=== PATIENT | male | born 1960 | race Caucasian/White ===

== ENCOUNTER → 2016-04-03 | Outpatient (CLI) | payer BC ==
[2016-04-03 08:10] LABS: Basophils % (A) 1 %; CH 31.4; CHCM 36.4; Eosinophils # (A) 0.3 k/uL (0-0.7); Eosinophils % (A) 4 %; HCT 44.4 % (39.0-53.0); HDW 2.93; HGB 15.4 gm/dL (13.0-17.5); Luc # (Auto) 0.12; Luc % (Auto) 2; Lymphocytes # (A) 1.3 k/uL (1.0-4.8); Lymphocytes % (A) 19 %; MCHC 34.7 g/dL (31.0-37.0); MCV 86.4 fL (80.0-100.0); Mean Platelet Volume 6.4; Monocytes # (A) 0.4 k/uL (0-1.0); Monocytes % (A) 6 %; Neutrophils # (A) 4.7 k/uL (1.3-7.7); Neutrophils % (A) 69 %; RBC 5.14 m/uL (4.30-5.90); WBC 6.7 k/uL (3.8-10.6); WBC (Perox) 6.85
[2016-04-03 10:03] LABS: ALT 61 U/L (21-72); AST 34 U/L (17-59); Alkaline Phosphatase 65 U/L (38-126); Anion Gap 11 mmol/L; Blood Urea Nitrogen 14 mg/dL (9-20); Calcium 9.5 mg/dL (8.4-10.2); Carbon Dioxide 25 mmol/L (22-30); Chloride 104 mmol/L (98-107); Cholesterol 146 mg/dL (<200); Creatine Kinase 228 U/L (55-170); Glucose 105 mg/dL (74-99); HDL Cholesterol 42 mg/dL (40-60); Non-African American GFR(MDRD) >60 (>60 ml/min/1.73 sqM); Potassium 4.6 mmol/L (3.5-5.1); Sodium 140 mmol/L (137-145); Total Bilirubin 1.3 mg/dL (0.2-1.3); Total Protein 7.1 g/dL (6.3-8.2); Triglycerides 118 mg/dL (<150)
[2016-04-03 10:35] LABS: Prostate Specific Antigen 1.88 ng/mL (0.00-4.00)
== END | disposition home or self-care (01) ==
LOC: LABWHC1 07:00
PROVIDERS: ATTEND Nurse Practitioner Family
DX: Z00.00 Encounter for general adult medical examination without abnormal findings (principal); E55.9 Vitamin D deficiency, unspecified; R35.1 Nocturia; Z13.220 Encounter for screening for lipoid disorders
CPT/HCPCS: 36415; 80053; 80061; 82306; 82550; 84153; 85025; 86141

== ENCOUNTER → 2020-04-09 | Outpatient (CLI) | payer BC ==
--- NOTE | 2020-04-09 09:06 | US ---
EXAMINATION TYPE: US duplex aorta DATE OF EXAM: 04/09/2020 COMPARISON: NONE CLINICAL HISTORY: Z13.6 encounter for screening for cardiovascular. EXAM MEASUREMENTS: Abdominal Aorta: Proximal: 2.2 x 2.4 cm Mid: 2.2 x 2.2 cm Distal: 2.1 x 2.1 cm Bifurcation: rt, 1.6 x 1.4 cm lt,1.4 x 1.3 cm Normal caliber aorta. IMPRESSION: 1 normal abdominal aorta
== END | disposition home or self-care (01) ==
LOC: RADUSWWP 08:24
PROVIDERS: ATTEND Family Medicine
DX: Z13.6 Encounter for screening for cardiovascular disorders (principal)
CPT/HCPCS: 93979

== ENCOUNTER → 2020-05-12 | Outpatient (CLI) | payer BC | END | disposition home or self-care (01) | LOC: LABWHC1 07:08 | PROVIDERS: ATTEND Urology | DX: R35.0 Frequency of micturition (principal) | CPT/HCPCS: 36415; 82947 ==

== ENCOUNTER → 2021-02-21 | Outpatient (CLI) | payer OTHER | END | disposition home or self-care (01) | LOC: LABPAT 12:51 | PROVIDERS: ATTEND Orthopaedic Surgery | DX: Z01.812 Encounter for preprocedural laboratory examination (principal); M17.11 Unilateral primary osteoarthritis, right knee | CPT/HCPCS: 87070 ==

== ENCOUNTER 2021-03-08 08:16 | Day surgery (SDC) | payer MEDICAID, OTHER ==
[2021-02-28 11:19] VITALS: BMI 31.6
--- NOTE | 2021-03-07 11:26 | HP ---
HISTORY AND PHYSICAL CHIEF COMPLAINT: Right knee pain. HISTORY OF PRESENT ILLNESS: The patient is a 60-year-old retired gentleman who presents with progressive right knee pain for the past several years, worsening recently. He notes medial pain, worse with weightbearing activities. He also has stiffness and occasional giving way. He has tried medications and cortisone injections and therapy, without much relief. PAST MEDICAL HISTORY: Significant for arthritis. PAST SURGICAL HISTORY: Significant for left knee arthroscopy. CURRENT MEDICATIONS: Tramadol and Motrin. ALLERGIES: HE DENIES DRUG ALLERGIES. FAMILY HISTORY: Significant for cancer. SOCIAL HISTORY: Negative for current tobacco or alcohol use. REVIEW OF SYSTEMS: Sixteen-point review of systems otherwise reviewed and is noncontributory. PHYSICAL EXAMINATION: On examination, the patient is approximately 6 feet 1 inch, 225 pounds of endomorphic habitus. HEENT exam is nonfocal. Neck is supple. He has painless passive motion of the right hip. Straight-leg raise is negative. Active motion of the right knee: Minus 15 to 70 degrees of flexion. He has a large effusion. He is tender about the medial and lateral joint lines. Collaterals are stable, Eliezer is negative, Zackary's is equivocal. His distal neurovascular exam appears intact in the right lower extremity. Weightbearing notch, lateral Merchant views right knee obtained in the office show severe medial compartment narrowing with [id number] changes and subchondral sclerosis. Multiple ossific loose bodies are noted. IMPRESSION: Right knee severe tricompartmental osteoarthrosis. RECOMMENDATIONS: I talked to the patient at length regarding his condition along with treatment options. At this point he remains quite symptomatic and limited because of pain related to his osteoarthrosis despite previous conservative measures. After thorough discussion, he opts to proceed with surgery. We will plan to proceed with right total knee arthroplasty. We will institute DVT prophylaxis postoperatively. Risks and benefits were discussed at length in layman's terms. MMODL / IJN: [id number] / [facility]
[~2021-03-08 08:16] MED LIST: ACETAMINOPHEN TAB 500 MG TAB PO PRN; DEXAMETHASONE SOD PHOSPHATE 4 MG/ML 1 ML VIAL IV ONE; LACTATED RINGERS 1,000 ML IV SCH; LIDOCAINE 1% (10MG/ML) FOR IV START INTRADERMA PRN; MELOXICAM 7.5 MG TAB PO PRN; MIDAZOLAM 2 MG/2 ML VIAL IV PRN; ONDANSETRON 4 MG/2 ML VIAL IVP ONE; TRANEXAMIC ACID 1,000 MG in SODIUM CHLORIDE 0.9% 100 ML IVPB PRN
[2021-03-08] MEDS ORDERED: fentaNYL (PF) 50 MCG/ML 2 ML AMP IV ONE (09:06)
[2021-03-08] MEDS ORDERED: ROPIVACAINE 0.2%-NS ON-Q PUMP 1,090 MG, EMPTY PAIN BALL 1 EACH MISCELLANE PRN (09:25)
--- NOTE | 2021-03-08 09:27 | P.ANPRN ---
Procedure Note - Anesthesia - Nerve Block Performed Right Adductor Canal Infusion Time Out Performed: Yes Date of Procedure: 03/08/21 Procedure Start Time: 09:05 Procedure Stop Time: 09:14 Location of Patient: PreOp Indication: Requested by Surgeon Specifically requested for management of pain by DrAnkit: Kelvin Madrigal Sedation Type: Sedate with meaningful contact maintained Preparation: Sterile Prep, Sterile Dressing Position: Supine Catheter: Indwelling Needle Types: Pajunk Needle Gauge: 18 Ultrasound used to visualize needle placement: Yes Ultrasound used to observe medication spread: Yes Injectate: 0.5% Ropivacaine (see comment for volume) (15 ml + 10 ml 0.9 % NS) Blood Aspirated: No Pain Paresthesia on Injection Noted: No Resistance on Injection: Normal Image Stored and Saved: Yes Events: Uneventful and Well Tolerated
--- NOTE | 2021-03-08 09:29 | P.ANPRN ---
Procedure Note - Anesthesia - Nerve Block Performed Right iPack Single Time Out Performed: Yes Date of Procedure: 03/08/21 Procedure Start Time: :15 Procedure Stop Time: : Location of Patient: PreOp Indication: Requested by Surgeon Specifically requested for management of pain by DrAnkit: Kelvin Madrigal Sedation Type: Sedate with meaningful contact maintained Preparation: Sterile Prep Position: Left Lateral Needle Types: Pajunk Needle Gauge: 21 Ultrasound used to visualize needle placement: Yes Ultrasound used to observe medication spread: Yes Injectate: 0.5% Ropivacaine (see comment for volume) (15 ml + 10 ml NS + 4 mg Dexamethason) Blood Aspirated: No Pain Paresthesia on Injection Noted: No Resistance on Injection: Normal Image Stored and Saved: Yes Events: Uneventful and Well Tolerated
[2021-03-08] MEDS ORDERED: SUCCINYLCHOLINE CHLORIDE 100 MG/5 ML SYR IV ONE (10:10)
[2021-03-08] MEDS ORDERED: MIDAZOLAM 2 MG/2 ML VIAL ONE (10:10)
[2021-03-08] MEDS ORDERED: SODIUM CHLORIDE 0.9% (PF) 10 ML VIAL ONE (10:10)
[2021-03-08] MEDS ORDERED: ROCURONIUM 10 MG/ML (5 ML VIAL) IV ONE (10:10)
[2021-03-08] MEDS ORDERED: HYDROmorphone (PF) 1 MG/ML ONE (10:10)
[2021-03-08] MEDS ORDERED: NEOSTIGMINE 1 MG/ML 10 ML VIAL ONE (10:10)
[2021-03-08] MEDS ORDERED: TRANEXAMIC ACID 1,000 MG/10 ML VIAL ONE (10:10)
[2021-03-08] MEDS ORDERED: GLYCOPYRROLATE 0.2 MG/ML 2 ML VIAL ONE (10:10)
[2021-03-08] MEDS ORDERED: fentaNYL (PF) 50 MCG/ML 2 ML AMP ONE (10:10)
[2021-03-08] MEDS ORDERED: DEXAMETHASONE SOD PHOSPHATE 4 MG/ML 1 ML VIAL ONE (10:10)
[2021-03-08] MEDS ORDERED: PROPOFOL 10 MG/ML 20 ML VIAL IV ONE (10:10)
[2021-03-08] MEDS ORDERED: SODIUM CHLORIDE 0.9% 100 ML BAG ONE (10:10)
[2021-03-08] MEDS ORDERED: ROPIVACAINE 5 MG/ML 30 ML VIAL ONE (10:10)
[2021-03-08] MEDS ORDERED: LIDOCAINE 1% INJ 10MG/ML (20 ML MDV) ONE (10:10)
[2021-03-08] MEDS ORDERED: ceFAZolin 1,000 MG in SODIUM CHLORIDE 0.9% 1,000 ML IRRIGATION ONE (10:41)
[2021-03-08] MEDS ORDERED: HYDROmorphone 1 MG/ML 1 ML SYRINGE IVP PRN (11:53)
[2021-03-08] MEDS ORDERED: NALOXONE 0.4 MG/ML 1 ML VIAL IV PRN (11:53)
[2021-03-08] MEDS ORDERED: ONDANSETRON 4 MG/2 ML VIAL IVP PRN (11:53)
--- NOTE | 2021-03-08 12:15 | P.OP ---
Date of Procedure: 03/08/21 Preoperative Diagnosis: Right knee severe tricompartmental osteoarthrosis Postoperative Diagnosis: Same Procedure(s) Performed: Right total knee arthroplastycementedposterior stabilized Implants: Depuy Attune size 8 cemented femoral component, size 7 cemented tibial component, 9 mm articular surface, 41 mm cemented patellar component. This is a posterior stabilized implant. [facility] Surgeon: Kelvin Madrigal Legal Recovery Specialist #1: Ellis Garcia Estimated Blood Loss (ml): 50 Pathology: none sent Condition: stable Disposition: PACU Indications for Procedure: Patient is a 60-year-old male who presents with progressive right knee pain secondary to osteoarthrosis despite conservative measures. A discussion of the risks and benefits of operative intervention versus continued conservative measures was made with patient. He opted proceed with surgery. Operative risks to include infection, neurovascular injury, development of blood clots, possible component loosening/failure and need for subsequent procedures was discussed. Informed consent was obtained. Operative Findings: As below Description of Procedure: The patient was brought to the operating room, and after induction of spinal anesthesia the right lower extremity was prepped and draped in a normal fashion. The tourniquet was inflated to 270 mm marker. A longitudinal incision extendi ng 3 finger breaths above the superior pole of patella extending to the medial aspect the tibial tubercle was then made. The skin and subcutaneous tissues were divided sharply. Electrocautery was used for hemostasis. A medial parapatellar arthrotomy was performed. The medial soft tissues to include the superficial and deep portions of the medial collateral ligament were elevated subperiosteally. The patella was everted. A portion of the retropatellar fat pad was excised sharply. The anterior cruciate ligament was sacrificed. Blunt retractors were placed. A starting hole was made in the distal femur 1 cm anterior to the posterior cruciate ligament origin. An intramedullary femoral guide was then inserted planning on 5 valgus distal cut with 9 mm distal resection. The cutting block was pinned in place. The distal cut was then made. The posterior referencing sizing guide was utilized. I felt size 8 was most appropriate. 3 of external rotation was built into the system and verified off the trans-epicondylar axis and the posterior condyles. The cutting block was pinned in place. The anterior, posterior, and chamfer cuts then made. Bone fragments were removed. The intercondylar guide was placed and the notch cut was made with a sagittal saw. The bone block was removed in one fragment. The trial component was then placed. There is good anterior to posterior and medial to lateral fit. The distal peg holes were drilled. The trial component was removed. Attention was then paid towards preparing the proximal femur. An extra medullary guide was utilized in line with the tibial shaft and second metatarsal distally. I planned on 4 mm resection from the medial compartment. The cutting block was pinned in place. The proximal tibial cut was then made. The bone was removed in one fragment. The remnants of the medial and lateral menisci were excised at the capsular junction with electrocautery. The tibia sized most appropriately at size 7. The trial femoral and tibial components were placed along with a 9 mm articular surface. I was able to obtain full flexion and extension with internal and external rotation. After several flexion and extension cycles, the tibial rotation was marked with electrocautery line with the medial one third of the tibial tubercle. Attention was then paid towards preparing the patella. A patella reamer was utilized taking stem to 14 mm of bone stock. A good flush cut was made. The patella sized most appropriately 41 mm. The peg holes were drilled. The trial components placed. I had good patellofemoral tracking with no hands technique. The trial components were then removed. The tibia was prepared in the appropriate rotation with appropriate drill and keel punch. The posterior osteophytes were removed with a curved osteotome. The flexion and extension gaps were checked and felt to be symmetric at 9 mm. A trial components were then removed. The bony surfaces were prepared with pulsatile lavage and dried. The tibial component was then cemented place was fully seated. Excess cement was removed. The femoral component cemented place and was fully seated. Excess cement was removed. The trial 9 mm articular surface was placed and the knee was put in full extension. The patella component was cemented place. After the cement had sufficiently hardened, the knee was again taken through a range of motion. Again I was able to obtain full flexion and extension with varus and valgus stress. The trial 9 mm articular surface was removed and the final one inserted. This was fully seated. Care was taken to avoid any soft tissue interposition. Pulsatile lavage was again utilized. The medial parapatellar arthrotomy was closed with #2 Ethibond suture. The tourniquet was deflated with approximately 60 minutes total tourniquet time. Final hemostasis was obtained with the cautery. There was minimal bleeding therefore a deep drain was not placed. The subcutaneous tissues were reapproximated with interrupted 2-0 Vicryl sutures. The skin was reapproximated with 3-0 subcuticular strata fix suture. Skin tape and adhesive was applied. A sterile dressing was applied. The patient was awoken from sedation and transferred to recovery room in good condition. Blood loss was estimated at 50 mL. No complications were incurred. Sponge and needle counts were correct at the end of the case. Eleazar GORMAN assisted during the major components of this case to include exposure, bone resection, implantation, and closure.
[2021-03-08] MEDS: HYDROmorphone 0.5 MG/0.5 ML SYRINGE IVP PRN ×4 (12:29→13:29)
--- NOTE | 2021-03-08 12:50 | XR ---
EXAMINATION TYPE: XR knee limited RT DATE OF EXAM: 03/08/2021 COMPARISON: NONE TECHNIQUE: Two views submitted HISTORY: Post op FINDINGS: There is a prosthetic knee in near anatomic alignment. There is soft tissue edema and emphysema. IMPRESSION: 1. Postoperative change. Appears in near-anatomic alignment
[2021-03-08] MEDS ORDERED: LACTATED RINGERS 1,000 ML IV ONE (12:56)
[2021-03-08] MEDS: HYDROcodone/APAP 7.5-325MG 1 EACH TAB PO PRN (14:54)
[2021-03-08] MEDS ORDERED: ONDANSETRON 4 MG/2 ML VIAL IVP ONE (15:47)
[2021-03-09 02:49] VITALS: BP 136/86
--- NOTE | 2021-03-09 06:52 | P.PN ---
Progress Note - Text Progress Note Date: 03/09/21 Postoperative day # 1 status post total knee arthroplasty, and adductor canal catheter placed for postoperative analgesia, currently at ropivacaine 0.2% 8 mL per hour and continuous infusion, visual analogue scale is 2/10, patient using oral pain medication for breakthrough pain. Assessment and plan= Acute postoperative pain, adductor canal catheter for pain control, pain is well controlled we'll continue the same management.
[2021-03-09] MEDS: HYDROcodone/APAP 7.5-325MG 1 EACH TAB PO PRN (07:20)
[2021-03-09 07:44] VITALS: PULSE 86; RESP 15; TEMP 97.8
--- NOTE | 2021-03-09 11:02 | P.DS ---
Providers Date of admission: 03/08/2021 Expected date of discharge: 03/09/21 Attending physician: Kelvin Madrigal Primary care physician: Delonte Schwarz Hospital Course: Date of admission: 03/08/2021 Date of discharge: 03/09/2021 Admission diagnosis: Right knee osteoarthritis Discharge diagnosis: Same Attending physician: Dr. Madrigal Surgical procedures: Right total knee arthroplasty Brief history: Patient is a 60-year-old male with a history of progressive primary right knee osteoarthritis. At this point patient has failed conservative treatment measures and has opted to proceed with a elective right total knee arthroplasty. Hospital course: Details of patient's surgery can be found in operative report. Patient tolerated the procedure well and was subsequently transported to orthopedic floor. Patient's orthopeidc and medical care was provided daily. Patient had daily laboratory tests performed for evaluation of overall blood counts. Patient had daily physical therapy to include strengthening range of motion as well as education with walker ambulation. Patient was treated with Eliquis for their postoperative DVT prophylaxis during their inpatient stay. Patient was noted to have a relatively uneventful postoperative course. Patient reported satisfactory pain control with oral pain medications by postoperative day 1. Patient showed satisfactory progress with physical therapy. Patient moved steadily through the program and had no difficulty meeting the goals by postoperative day 1. Given patient's otherwise satisfactory course and having met physical therapy goals, plan is to discharge patient home on postoperative day 1. Discharge condition/disposition: Patient will be discharged home in stable condition. Discharge medications: Instructions are given on resumption of patient's normal daily medications per primary care recommendation, in addition patient will be prescribed [place] 7.5 mg/325 mg; Colace; Eliquis 2.5 mg BID x 2 weeks. Orthopedic Discharge Instructions: 1. Wound care and infection precautions, keep incision dry and covered while showering, no lotions, creams, moisturizers. No soaking, pools, hot tubs. Do not scrub over incision. 2. Weight-bear as tolerated with walker / cane until follow-up. 3. Ice and elevate when necessary. Do not exceed 20 minutes per hour with ice pack. 4. Utilize compression sleeve until seen at first follow up appointment. 5. Pain meds and anticoagulants per prescription. 6. Pain medication has potential to cause constipation. Increase oral fluid and fiber intake. Contact primary care provider if you have not had a bowel movement within 48 hours after discharge. 7. No anti-inflammatory medication until discussed at first post operative visit, this including Motrin, Aleve, Mobic, Diclofenac. 8. Follow up in office at 2 weeks postop with Eleazar Garcia PA-C/Jose G Espinoza PA-C 9. Follow up with your primary care doctor 7-10 days after discharge. 10. Contact [facility] with any questions, . *Fer wrap ok to remove next day. Mesh tape dressing to stay on until follow up in office. Okay to shower BUT wrap knee. Use compression socks until follow up. Vanessa Darling caser attempting to contact [facility]. She will follow up with the [facility] in the morning. Vanessa will make contact with you tomorrow and give update. medications: [place] 7.5/325 mg q6h; Colace 100 mg; Eliquis 2.5 mg BID x 2 weeks Assessment: right knee osteoarthritis Procedures: right total knee arthroplasty Patient Condition at Discharge: Good Plan - Discharge Summary Discharge Rx Participant: Yes New Discharge Prescriptions: New HYDROcodone/APAP 7.5-325MG [[place] 7.5] 1 - 2 each PO Q6HR PRN #42 tab PRN Reason: Pain Docusate [Colace] 100 mg PO DAILY #30 capsule Apixaban [Eliquis] 2.5 mg PO BID #60 tab Discharge Medication List Apixaban [Eliquis] 2.5 mg PO BID #60 tab 03/08/21 [Rx] Docusate [Colace] 100 mg PO DAILY #30 capsule 03/08/21 [Rx] HYDROcodone/APAP 7.5-325MG [[place] 7.5] 1 - 2 each PO Q6HR PRN #42 tab 03/08/21 [Rx] Follow up Appointment(s)/Referral(s): Jose G Espinoza, PAC [PHYSICIAN [facility] [employer] [facility]ENER] - 03/24/21 10:30 am [facility] [NON-STAFF] - (*Please call [facility] once home to arrange delivery of the Continuous Passive Motion (CPM) machine. ) [facility], [NON-STAFF] - As Needed ([facility] will call you to schedule your in home physical therapy and nursing visits. ) Patient Instructions/Handouts: *[facility] - Anesthesia Discharge Instructions, *[facility] - On-Q Pain Pump Discharge Instructions, How to Use an Incentive Spirometer (DC), Knee Replacement (DC) Activity/Diet/Wound Care/Special Instructions: Orthopedic Discharge Instructions: 1. Wound care and infection precautions, keep incision dry and covered while showering, no lotions, creams, moisturizers. No soaking, pools, hot tubs. Do not scrub over incision. 2. Weight-bear as tolerated with walker / cane until follow-up. 3. Ice and elevate when necessary. Do not exceed 20 minutes per hour with ice pack. 4. Utilize compression sleeve until seen at first follow up appointment. 5. Pain meds and anticoagulants per prescription. 6. Pain medication has potential to cause constipation. Increase oral fluid and fiber intake. Contact primary care provider if you have not had a bowel movement within 48 hours after discharge. 7. No anti-inflammatory medication until discussed at first post operative visit, this including Motrin, Aleve, Mobic, Diclofenac. 8. Follow up in office at 2 weeks postop with Eleazar Garcia PA-C/Jose G Espinoza PA-C 9. Follow up with your primary care doctor 7-10 days after discharge. 10. Contact [facility] with any questions, . *Fer wrap ok to remove next day. Mesh tape dressing to stay on until follow up in office. Okay to shower BUT wrap knee. Use compression socks until follow up. Vanessa Darling caser attempting to contact [facility]. She will follow up with the [facility] in the morning. Vanessa will make contact with you tomorrow and give update. medications: [place] 7.5/325 mg q6h; Colace 100 mg; Eliquis 2.5 mg BID x 2 weeks Discharge Disposition: HOME WITH HOME HEALTH SERVICES
--- NOTE | 2021-03-09 11:10 | P.PN ---
Subjective Progress Note Date: 03/09/21 Principal diagnosis: right knee osteoarthritis Patient was seen this morning resting comfortably sitting up at bedside in chair. patient says he did get up with physical therapy earlier and walk around the room and into the hallway and up-and-down a couple steps. patient says the more he walked around his knee felt better. He says at first when he did get up his knee was a little stiff. patient says he has been using incentive spirometer and used it overnight. patient says he does have a walker at home. patient denies chest pain, fever, shortness of breath, nausea, vomiting, change in vision, loss of bowel/bladder control. Objective - Vital Signs Vital signs: Vital Signs Temp 97.8 F 03/09/21 07:43 Pulse 86 03/09/21 08:00 Resp 15 03/09/21 08:00 BP 136/86 03/09/21 02:00 Pulse Ox 92 L 03/09/21 07:43 Intake & Output 03/08/21 03/09/21 03/09/21 18:59 06:59 18:59 Intake Total 1301 Output Total 50 1950 100 Balance 1251 -1950 -100 Weight 109 kg Intake: IV 1301 Output: Urine 1950 100 Estimated Blood Loss 50 Other: Voiding Method Urinal Urinal # Voids 4 - Exam right knee: Incision is clean, dry, and intact. The mesn tape is in good condition. There is minimal soft tissue swelling and ecchymosis surrounding the medial and lateral aspects of the incision. Calf is soft, no tenderness with palpation. Plantar flexion, dorsiflexion, EHL, FHL are intact. Sensory exam to light touch throughout the extremity is intact, dorsal pedis pulses 2+. Assessment and Plan Assessment: right knee osteoarthritis Postoperative day 1 status post right total knee arthroplasty Plan: 1. Right knee osteoarthritis -right total knee arthroplasty performed yesterday, 03/08/2021. patient stable at bedside this morning. Plan discharge home today with health services. 2. Appreciate medical management 3. DVT prophylaxis - Eliquis 2.5 mg BID x 2 weeks 4. Pain management - [place] 7.5mg/325mg 5. GI ppx - Colace 6. PT/OT - WBAT w/walker 7. Encourage incentive spirometer use 8. Discharge planning - Discharge home today with health services. Time with Patient: Less than 30
== END 2021-03-09 11:56 | disposition home health service (06) ==
LOC: OR 08:16 → 4SSUR 12:07 → OR 03-09 11:56
PROVIDERS: ATTEND Orthopaedic Surgery
DX: M17.11 Unilateral primary osteoarthritis, right knee (principal); Z86.718 Personal history of other venous thrombosis and embolism; Z79.01 Long term (current) use of anticoagulants; Z79.1 Long term (current) use of non-steroidal anti-inflammatories (NSAID); Z79.891 Long term (current) use of opiate analgesic; Z80.9 Family history of malignant neoplasm, unspecified
CPT/HCPCS: 97116; 97162; 64999; 64448; 76942; 88300; 87635; 73560; 27447; C1713 ×2; C1776; J2250; J1100; J0690 ×2; J2405; J3010; J1170; J2795; J1790

== ENCOUNTER → 2021-10-14 | Outpatient (CLI) | payer MEDICAID ==
--- NOTE | 2021-10-14 10:21 | US ---
EXAMINATION TYPE: US gallbladder DATE OF EXAM: 10/14/2021 COMPARISON: NONE CLINICAL HISTORY: K80.20 CALCULUS OF GALLBADDER WITH OUT CHOLECYSTITIS. TECHNIQUE: Multiple sonographic images of the right upper quadrant are obtained. FINDINGS: EXAM MEASUREMENTS: Liver Length: 14.2 cm Gallbladder Wall: 0.3 cm CBD: 0.2 cm Right Kidney: 11.6 x 5.5 x 4.9 cm LEGAL JOB TITLES NOTES: Pancreas: wnl as seen, mostly obscured by overlying bowel gas Liver: Hypoechoic irregular shaped area in left lobe is probably focal fatty sparing. Her term follo w-up is recommended. Increased attenuation diffusely within the liver. Gallbladder: cholelithiasis, comet tail artifact in wall Evidence for sonographic Gary's sign: CBD: wnl Right Kidney: round area midline right kidney may be dromedary hump, however it has a masslike appea christopher, area measures 4.1 x 3.2 x 3.0cm, follow-up is recommended. IMPRESSION: 1. Cholelithiasis. 2. Some irregular hypodensity within the liver may be some fatty sparing. Other etiologies should be considered. Short-term follow-up in 3 months with ultrasound is recommended. Additional workup could be performed with CT with contrast. 3. Suspected dromedary hump right kidney. This could be further evaluated with follow-up ultrasound i n [address]
== END | disposition home or self-care (01) ==
LOC: RADUSWWP 09:33
PROVIDERS: ATTEND Family Medicine
DX: K80.20 Calculus of gallbladder without cholecystitis without obstruction (principal)
CPT/HCPCS: 76705

== ENCOUNTER → 2021-12-05 | Outpatient (CLI) | payer MEDICAID ==
--- NOTE | 2021-12-05 12:53 | CT ---
EXAMINATION TYPE: CT abdomen pelvis w con DATE OF EXAM: 12/05/2021 COMPARISON: Gallbladder OCTOBER 14, 2021. HISTORY: Disorder of kidney and ureter. Abnormal ultrasound. CT DLP: 1678 mGycm, Automated Exposure Control for Dose Reduction was Utilized. CONTRAST: CT scan of the abdomen and pelvis is performed with oral and with IV Contrast, patient injected with 70 mL of Isovue 300. FINDINGS: LUNG BASES: There is a 8 mm posterior right lower lung calcified nodule of benign granuloma axial jigar ge 21. LIVER/GB: Depended density consistent with small stones and/or gallbladder sludge in somewhat contrac alexander gallbladder is redemonstrated. No biliary dilatation. No concerning solid or cystic intrahepatic masses. No adjacent ascites. Liver is heterogeneously isodense to slightly hypodense relative to the spleen correlating with mild diffuse fatty infiltration on ultrasound. PANCREAS: No significant abnormality is seen. SPLEEN: No significant abnormality is seen. ADRENALS: No significant abnormality is seen. KIDNEYS: Symmetric cortical medullary uptake and excretion without hydronephrosis seen bilaterally. N o concerning solid or cystic mass in the right kidney identified. Prominent dromedary hump is confirm ed. Left kidney shows exophytic 1.9 x 1.4 cm hypodense round lesion with Hounsfield units averaging 2 7 favoring debris filled or proteinaceous cyst. BOWEL: Small sized hiatal hernia. Oral contrast does not reach level terminal ileum making evaluation of distal bowel slightly suboptimal. No suspicious small or large bowel dilatation is seen. Divertic henrique in sigmoid colon without CT evidence for acute diverticulitis. PROSTATE/SEMINAL VESICLES: Upper limits of normal in size. Adjacent pelvic phleboliths are present gr eatest on the left. LYMPH NODES: No greater than 1cm abdominal or pelvic lymph nodes are appreciated. OSSEOUS STRUCTURES: No significant abnormality is seen. OTHER: Small fat-containing bilateral inguinal hernias. IMPRESSION: No concerning right renal or liver mass.
== END | disposition home or self-care (01) ==
LOC: RADCTMAIN 09:39
PROVIDERS: ATTEND Family Medicine
DX: N28.9 Disorder of kidney and ureter, unspecified (principal)
CPT/HCPCS: 74177; Q9967 ×2

== ENCOUNTER → 2021-12-08 | Outpatient (CLI) | payer MEDICAID | END | disposition home or self-care (01) | LOC: LABPAT 10:13 | PROVIDERS: ATTEND Orthopaedic Surgery | DX: Z01.818 Encounter for other preprocedural examination (principal); M17.12 Unilateral primary osteoarthritis, left knee | CPT/HCPCS: 87070 ==

== ENCOUNTER 2021-12-20 10:53 | Observation (INO) | payer MEDICAID ==
[2021-12-15 14:32] VITALS: BMI 33.0
--- NOTE | 2021-12-19 09:44 | P.HPOR ---
History of Present Illness H&P Date: 12/19/21 Chief Complaint: Left knee pain The patient is a 61-year-old retired male who presents with progressive left knee pain for the past several years worsening recently. He notes swelling and stiffness. He's tried medications in addition to previous injections with only partial temporary relief. He notes daily limitation. He did have a previous left knee arthroscopy. Review of Systems As per HPI Past Medical History Past Medical History: Osteoarthritis (OA) Additional Past Medical History / Comment(s): pain left knee History of Any Multi-Drug Resistant Organisms: None Reported Past Surgical History: Joint Replacement, Orthopedic Surgery Additional Past Surgical History / Comment(s): tear duct surgery umm, CTR left wrist, total right knee. Past Anesthesia/Blood Transfusion Reactions: No Reported Reaction Past Psychological History: No Psychological Hx Reported Smoking Status: Never smoker Past Alcohol Use History: Occasional Past Drug Use History: None Reported Medications and Allergies Home Medications Medication Instructions Recorded Confirmed Type No Known Home Medications 12/15/21 12/15/21 History Allergies Allergy/AdvReac Type Severity Reaction Status Date / Time No Known Allergies Allergy Verified 12/15/21 14:12 Physical Examination - Knee left Appearance: effusion Effusion grade: grade 1 Varus alignment in stance: 10 degrees Tenderness with palpation: medial Pain: with flexion Gait: limping ROM: extension: -10 degrees ROM: flexion: 120 degrees Strength: extension: 5/5 Strength: flexion: 5/5 Results The patient is a well-developed well-nourished male approximate 6 foot 1, 224 pounds of endomorphic habitus. HEENT exam is nonfocal, neck supple. He has painless passive motion of the left hip. Straight leg raise is negative. His distal neurovascular appears intact in the left lower extremity. - Diagnostic results Knee x-ray: image reviewed (3 views of the left knee obtained in the office show severe medial compartment narrowing with [id number] changes and subchondral sclerosis.) Assessment and Plan Assessment: Left knee severe tricompartmental osteoarthrosis Plan: I talked with the patient with regarding his condition along with treatment options. At this point he is quite limited because of pain related to his osteoarthrosis. After a thorough discussion he opts to proceed with surgery. We will plan to proceed with left total knee arthroplasty. Risks and benefits were discussed at length in layman's terms. Time with Patient: Less than 30
[~2021-12-20 10:53] MED LIST changes: -LACTATED RINGERS 1,000 ML IV SCH; -LIDOCAINE 1% (10MG/ML) FOR IV START INTRADERMA PRN; -MIDAZOLAM 2 MG/2 ML VIAL IV PRN; -TRANEXAMIC ACID 1,000 MG in SODIUM CHLORIDE 0.9% 100 ML IVPB PRN; +TRANEXAMIC ACID IN NACL,ISO-OS 1,000 MG in SALINE 1 100ML.BAG IVPB PRN
[2021-12-20] MEDS ORDERED: LACTATED RINGERS 1,000 ML IV ONE ×2 (11:45→14:30)
[2021-12-20] MEDS ORDERED: ROPIVACAINE 5 MG/ML 30 ML VIAL ONE (12:42)
[2021-12-20] MEDS ORDERED: fentaNYL (PF) 50 MCG/ML 2 ML AMP ONE (12:42)
[2021-12-20] MEDS ORDERED: TRANEXAMIC ACID IN NACL,ISO-OS 1,000 MG/100 ML BAG ONE (12:42)
[2021-12-20] MEDS ORDERED: SUCCINYLCHOLINE CHLORIDE 200 MG/10 ML VIAL IV ONE (12:42)
[2021-12-20] MEDS ORDERED: KETAMINE 10 MG/ML 20 ML VIAL ONE (12:42)
[2021-12-20] MEDS ORDERED: DEXAMETHASONE SOD PHOSPHATE 4 MG/ML 1 ML VIAL ONE (12:42)
[2021-12-20] MEDS ORDERED: PROPOFOL 10 MG/ML 20 ML VIAL IV ONE (12:42)
[2021-12-20] MEDS ORDERED: GLYCOPYRROLATE 0.2 MG/ML 2 ML VIAL ONE (12:42)
[2021-12-20] MEDS ORDERED: NEOSTIGMINE 1 MG/ML 10 ML VIAL ONE (12:42)
[2021-12-20] MEDS ORDERED: HYDROmorphone (PF) 1 MG/ML ONE (12:42)
[2021-12-20] MEDS ORDERED: LIDOCAINE 2% INJ 20 MG/ML (2 ML VIAL) ONE (12:42)
[2021-12-20] MEDS ORDERED: ROCURONIUM 10 MG/ML (5 ML VIAL) IV ONE (12:42)
[2021-12-20] MEDS ORDERED: MIDAZOLAM 2 MG/2 ML VIAL ONE (12:42)
[2021-12-20] MEDS ORDERED: diphenhydrAMINE 50 MG/ML 1 ML VIAL ONE (12:42)
[2021-12-20] MEDS ORDERED: MIDAZOLAM 2 MG/2 ML VIAL IVP ONE (12:46)
[2021-12-20] MEDS ORDERED: ceFAZolin 1,000 MG in SODIUM CHLORIDE 0.9% 1,000 ML IRRIGATION ONE (13:15)
[2021-12-20] MEDS ORDERED: HYDROmorphone 0.5 MG/0.5 ML SYRINGE IVP PRN ×2 (14:26)
[2021-12-20] MEDS ORDERED: HYDROcodone/APAP 7.5-325MG 1 EACH TAB PO PRN (14:26)
[2021-12-20] MEDS ORDERED: NALOXONE 0.4 MG/ML 1 ML VIAL IV PRN (14:26)
[2021-12-20] MEDS ORDERED: HYDROcodone/APAP 5-325MG 1 EACH TAB PO PRN (14:26)
[2021-12-20] MEDS ORDERED: HYDROmorphone 1 MG/ML 1 ML SYRINGE IVP PRN (14:26)
[2021-12-20] MEDS ORDERED: ONDANSETRON 4 MG/2 ML VIAL IVP PRN (14:26)
--- NOTE | 2021-12-20 14:51 | P.OP ---
Date of Procedure: 12/20/21 Preoperative Diagnosis: Left knee severe tricompartmental osteoarthritis Postoperative Diagnosis: Same Procedure(s) Performed: Left total knee arthroplastycementedposterior stabilized Implants: Depuy Attune size 8 cemented femoral component, size 7 cemented tibial component, 11 mm articular surface, 38 mm cemented patellar component. This is a posterior stabilized implant. Anest[facility]: [facility] Surgeon: Kelvin Madrigal Supervisor Mapping #1: Jose G Espinoza Estimated Blood Loss (ml): 50 Pathology: other (Bone fragments) Condition: stable Disposition: PACU Indications for Procedure: The patient is a 61-year-old male presents with progressive left knee pain secondary osteoarthrosis despite attempted conservative measures. A discussion of the risks and benefits of operative intervention versus continued conservative measures was made with the patient. He opted to proceed with surgery. Operative risks to include infection, neurovascular injury, development of blood clots, fracture, possible component loosening/failure and need for subsequent procedures was discussed. Informed consent was obtained. Operative Findings: As below Description of Procedure: The patient was brought to the operating room, and after induction of spinal anesthesia the left lower extremity was prepped and draped in a normal fashion. The tourniquet was inflated to 270 mm marker. A longitudinal incision extending 3 finger breaths above the superior pole of patella extending to the medial aspect the tibial tubercle was then made. The skin and subcutaneous tissues were divided sharply. Electrocautery was used for hemostasis. A medial parapatellar arthrotomy was performed. The medial soft tissues to include the superficial and deep portions of the medial collateral ligament were elevated subperiosteally. The patella was everted. A portion of the retropatellar fat pad was excised sharply. The anterior cruciate ligament was sacrificed. Blunt retractors were placed. A starting hole was made in the distal femur 1 cm anterior to the posterior cruciate ligament origin. An intramedullary femoral guide was then inserted planning on 5 valgus distal cut with 9 mm distal resection. The cutting block was pinned in place. The distal cut was then made. The posterior referencing sizing guide was utilized. I felt size 8 was most appropriate. 3 of external rotation was built into the system and verified off the trans-epicondylar axis and the posterior condyles. The cutting block was pinned in place. The anterior, posterior, and chamfer cuts then made. Bone fragments were removed. The intercondylar guide was placed and the notch cut was made with a sagittal saw. The bone block was removed in one fragment. The trial component was then placed. There is good anterior to posterior and medial to lateral fit. The distal peg holes were drilled. The trial component was removed. Attention was then paid towards preparing the proximal tibia. An extra medullary guide was utilized in line with the tibial shaft and second metatarsal distally. I planned on 2 mm resection from the medial compartment. The cutting block was pinned in place. The proximal tibial cut was then made. The bone was removed in one fragment. The remnants of the medial and lateral menisci were excised at the capsular junction with electrocautery. The tibia sized most appropriately at size 7. The trial femoral and tibial components were placed along with a 11 mm articular surface. I was able to obtain full flexion and extension with internal and external rotation. After several flexion and extension cycles, the tibial rotation was marked with electrocautery line with the medial one third of the tibial tubercle. Attention was then paid towards preparing the patella. A patella reamer was utilized taking stem to 14 mm of bone stock. A good flush cut was made. The patella sized most appropriately 38 mm. The peg holes were drilled. The trial components placed. I had good patellofemoral tracking with no hands technique. The trial components were then removed. The tibia was prepared in the appropriate rotation with appropriate drill and keel punch. The posterior osteophytes were removed with a curved osteotome. The flexion and extension gaps were checked and felt to be symmetric at 11 mm. A trial components were then removed. The bony surfaces were prepared with pulsatile lavage and dried. The tibial component was then cemented place was fully seated. Excess cement was removed. The femoral component cemented place and was fully seated. Excess cement was removed. The trial 11 mm articular surface was placed and the knee was put in full extension. The patella component was cemented place. After the cement had sufficiently hardened, the knee was again taken through a range of motion. Again I was able to obtain full flexion and extension with varus and valgus stress. The trial 11 mm articular surface was removed and the final one inserted. This was fully seated. Care was taken to avoid any soft tissue interposition. Pulsatile lavage was again utilized. The medial parapatellar arthrotomy was closed with #2 Ethibond suture. The tourniquet was deflated with approximately 60 minutes total tourniquet time. Final hemostasis was obtained with the cautery. There was minimal bleeding therefore a deep drain was not placed. The subcutaneous tissues were reapproximated with interrupted 2-0 Vicryl sutures. The skin was reapproximated with 3-0 subcuticular strata fix suture. Skin tape and adhesive was applied. A sterile dressing was applied. The patient was awoken from sedation and transferred to recovery room in good condition. Blood loss was estimated at 50 mL. No complications were incurred. Sponge and needle counts were correct at the end of the case. Jose G GORMAN assisted during the major components of this case to include exposure, bone resection, implantation, and closure.
[2021-12-20] MEDS ORDERED: ROPIVACAINE 0.2%-NS ON-Q PUMP 2 MG/ML EACH MISCELLANE ONE (15:04)
[2021-12-20] MEDS: HYDROmorphone 0.5 MG/0.5 ML SYRINGE IVP PRN ×3 (15:08→15:38)
--- NOTE | 2021-12-20 15:16 | XR ---
EXAMINATION TYPE: XR knee limited LT DATE OF EXAM: 12/20/2021 COMPARISON: NONE TECHNIQUE: Two views submitted HISTORY: Post op FINDINGS: There is a prosthetic knee in near anatomic alignment. There is soft tissue edema and emphysema. IMPRESSION: 1. Postoperative change. Appears in near-anatomic alignment
[2021-12-20] MEDS: LACTATED RINGERS 1,000 ML IV SCH (19:38)
[2021-12-21] MEDS: LACTATED RINGERS 1,000 ML IV SCH (06:44)
--- NOTE | 2021-12-21 07:20 | P.PN ---
Progress Note - Text Progress Note Date: 12/21/21 Postoperative day # 1 status post total knee arthroplasty, and adductor canal catheter placed for postoperative analgesia, currently at ropivacaine 0.2% 8 mL per hour and continuous infusion, visual analogue scale is 3-4 /10, patient using oral pain medication for breakthrough pain. Assessment and plan= Acute postoperative pain, adductor canal catheter for pain control, pain is well controlled we'll continue the same management.
[2021-12-21 07:51] VITALS: BP 156/93; PULSE 95; RESP 17; TEMP 97.8
[2021-12-21] MEDS ORDERED: RIVAROXABAN 10 MG TAB PO SCH (09:00)
--- NOTE | 2021-12-21 10:27 | P.DS ---
Providers Date of admission: 12/20/21 19:00 Expected date of discharge: 12/21/21 Attending physician: Kelvin Madrigal Primary care physician: Delonte Schwarz Hospital Course: Date of admission: 12/20/2021 Date of discharge: 12/21/2021 Admission diagnosis: Left knee osteoarthritis Discharge diagnosis: Same Attending physician: Dr. Madrigal Surgical procedures: Left total knee arthroplasty Brief history: Patient is a 61-year-old male with a history of progressive primary left knee osteoarthritis. At this point patient has failed conservative treatment measures and has opted to proceed with a elective left total knee arthroplasty. Hospital course: Details of patient's surgery can be found in operative report. Patient tolerated the procedure well and was subsequently transported to orthopedic floor. Patient's orthopeidc and medical care was provided daily. Patient had daily laboratory tests performed for evaluation of overall blood counts. Patient had daily physical therapy to include strengthening range of motion as well as education with walker ambulation. Patient was treated with Xarelto for their postoperative DVT prophylaxis during their inpatient stay. Patient was noted to have a relatively uneventful postoperative course. Patient reported satisfactory pain control with oral pain medications by postoperative day 1. Patient showed satisfactory progress with physical therapy. Patient moved steadily through the program and had no difficulty meeting the goals by postoperative day 1. Given patient's otherwise satisfactory course and having met physical therapy goals, plan is to discharge patient home with health services on postoperative day 1. Discharge condition/disposition: Patient will be discharged home with health services in stable condition. Discharge medications: Instructions are given on resumption of patient's normal daily medications per primary care recommendation, in addition patient will be prescribed [place]; Colace; aspirin 81 mg twice a day 30 days. Discharge instructions: 1. Wound care and infection precautions, keep incision dry and covered while showering, no lotions, creams, moisturizers. No soaking, tubs, pools, hottubs. Do not scrub over the incision. 2. Weight-bear as tolerated with walker / cane until follow-up. 3. Ice and elevate when necessary. Do not exceed 20 minutes per hour with ice pack. 4. Utilize compression sleeve until seen at first follow up appointment. 5. Visiting nursing care. 6. Home physical therapy. 7. Pain meds and anticoagulants per prescription. 8. Pain medication has potential to cause constipation. Increase oral fluid and fiber intake. Contact primary care provider if you have not had a bowel movement within 48 hours after discharge 9. No anti-inflammatory medication until discussed at first post operative visit, this including Motrin, Aleve, Mobic, Diclofenac. 10. Follow up in office at 2 weeks postop with Eleazar Garcia PA-C / Jose G Espinoza PA-C 11. Follow up with your primary care doctor 7-10 days after discharge. 12. Contact [facility] with any questions, . Assessment: Left knee osteoarthritis Procedures: Left total knee arthroplasty Patient Condition at Discharge: Good Plan - Discharge Summary Discharge Rx Participant: Yes New Discharge Prescriptions: New Docusate [Colace] 100 mg PO DAILY #30 capsule HYDROcodone/APAP 7.5-325MG [[place] 7.5] 1 - 2 each PO Q6HR PRN #36 tab PRN Reason: Pain Aspirin [Adult Low Dose Aspirin EC] 81 mg PO BID #60 tab Discharge Medication List Docusate [Colace] 100 mg PO DAILY #30 capsule 12/20/21 [Rx] HYDROcodone/APAP 7.5-325MG [[place] 7.5] 1 - 2 each PO Q6HR PRN #36 tab 12/20/21 [Rx] Aspirin [Adult Low Dose Aspirin EC] 81 mg PO BID #60 tab 12/21/21 [Rx] Follow up Appointment(s)/Referral(s): Jose G Espinoza, POOJA [PHYSICIAN [employer]ADIES SUIT OPERATOR] - 2 Weeks [facility], [NON-STAFF] - 1-2 Days Patient Instructions/Handouts: *Surgery [facility] - On-Q Pain Pump Discharge Instructions, *[facility] - (Anesthesia) Discharge Instructions Outpatient Surgery, How to Use an Incentive Spirometer (DC), Knee Replacement (DC) Activity/Diet/Wound Care/Special Instructions: Orthopedic Discharge Instructions: 1. Wound care and infection precautions, keep incision dry and covered while showering, no lotions, creams, moisturizers. No soaking, pools, hot tubs. Do not scrub over incision. 2. Weight-bear as tolerated with walker / cane until follow-up. 3. Ice and elevate when necessary. Do not exceed 20 minutes per hour with ice pack. 4. Utilize compression sleeve until seen at first follow up appointment. 5. Pain meds and anticoagulants per prescription. 6. Pain medication has potential to cause constipation. Increase oral fluid and fiber intake. Contact primary care provider if you have not had a bowel movement within 48 hours after discharge. 7. No anti-inflammatory medication until discussed at first post operative visit, this including Motrin, Aleve, Mobic, Diclofenac 8. Follow up in office at 2 weeks postop with Eleazar Garcia PA-C / Jose G Espinoza PA-C 9. Follow up with your primary care doctor 7-10 days after discharge. 10. Contact [facility] with any questions, . Keep incision clean, dry, intact. While showering, cover fusion tape was Saran wrap. Keep fusion tape on until follow-up in office at 2 weeks Keep Fer bandage on until tomorrow, , 01/18/2022. Medications: [place] 7.5mg/325mg; Colace; aspirin 81 mg twice a day 30 days. Discharge Disposition: HOME WITH HOME HEALTH SERVICES
[2021-12-21] MEDS ORDERED: RIVAROXABAN 10 MG TAB PO STA (10:28)
--- NOTE | 2021-12-21 12:20 | P.PN ---
Subjective Progress Note Date: 12/21/21 Principal diagnosis: Left knee osteoarthritis Patient was seen at bedside this morning resting comfortably sitting up in chair with legs elevated. Patient says he did get up overnight and walk around the room using walker. Patient says he does have a walker at home. Patient says he did do well with physical therapy this morning and walked up-and-down steps. Patient says he has urinated several times since surgery yesterday. Patient says he has not had bowel movement yet, however, patient says he has been passing gas. Patient denies chest pain, fever, shortness breath, nausea, vomiting, change in vision, loss of bowel/bladder control. Objective - Vital Signs Vital signs: Vital Signs Temp 97.8 F 12/21/21 07:49 Pulse 95 12/21/21 07:49 Resp 17 12/21/21 07:49 BP 156/93 12/21/21 07:49 Pulse Ox 98 12/21/21 07:49 FiO2 Intake & Output 12/20/21 12/21/21 12/21/21 18:59 06:59 18:59 Intake Total 1901 Output Total 50 Balance 1851 Weight 113.5 kg 113.5 kg Intake: IV 1900 Output: Estimated Blood Loss 50 Other: Voiding Method Urinal - Exam Left knee: Incision is intact. There is some serous drainage from the proximal end of incision, minor. abd pads and double long wrap placed over knee. The exofin fusion tape is in good condition. There is minimal soft tissue swelling and ecchymosis surrounding the medial and lateral aspects of the incision. Calf is soft, no tenderness with palpation. Plantar flexion, dorsiflexion, EHL, FHL are intact. Sensory exam to light touch throughout the extremity is intact, dorsal pedis pulses 2+. Assessment and Plan Assessment: 1. Left knee osteoarthritis - Postoperative day 1 status post left total knee arthroplasty Plan: 1. Left knee osteoarthritis - left total knee arthroplasty performed yesterday, 12/20/2021. Patient stable at bedside this morning. Patient does have a walker for home. Discharge home today with health services. 2. Appreciate medical management 3. Pain management - [place] 4. DVT prophylaxis - Xarelto in hospital. Going home with aspirin 81 mg twice a day 30 days 5. GI prophylaxis - senna in hospital. Going home with Colace 6. PT/OT - weightbearing as tolerated with walker 7. Encourage incentive spirometer use 8. Discharge planning - home today with health services Time with Patient: Less than 30
--- NOTE | 2021-12-23 15:38 | P.ANPRN ---
Procedure Note - Anesthesia - Nerve Block Performed Left Adductor Canal Infusion Time Out Performed: Yes Date of Procedure: 12/20/21 Procedure Start Time: : Procedure Stop Time: :32 Location of Patient: PreOp Indication: Acute Post-Operative Pain, Requested by Surgeon Sedation Type: Sedate with meaningful contact maintained Preparation: Sterile Prep, Sterile Dressing Position: Supine Catheter: Indwelling Needle Types: Pajunk Ultrasound used to visualize needle placement: Yes Ultrasound used to observe medication spread: Yes Blood Aspirated: No Pain Paresthesia on Injection Noted: No Resistance on Injection: Normal Image Stored and Saved: Yes Events: Uneventful and Well Tolerated (ropi .5% 20cc plus dexamethasone 4mg)
--- NOTE | 2021-12-23 15:39 | P.ANPRN ---
Procedure Note - Anesthesia - Nerve Block Performed Left iPack Single Time Out Performed: Yes Date of Procedure: 12/20/21 Procedure Start Time: 12:33 Procedure Stop Time: 12:37 Location of Patient: PreOp Indication: Acute Post-Operative Pain, Requested by Surgeon Sedation Type: Sedate with meaningful contact maintained Preparation: Sterile Prep Position: Supine Needle Types: Pajunk Needle Gauge: 21 Ultrasound used to visualize needle placement: Yes Ultrasound used to observe medication spread: Yes Blood Aspirated: No Pain Paresthesia on Injection Noted: No Resistance on Injection: Normal Image Stored and Saved: Yes Events: Uneventful and Well Tolerated (ropi .5% 20cc plus dexamethasone mg)
== END 2021-12-21 11:39 | disposition home health service (06) ==
LOC: OR 10:53 → 4SSUR 14:42 → OR 19:00
PROVIDERS: ADMIT Orthopaedic Surgery; ATTEND Orthopaedic Surgery
DX: M17.12 Unilateral primary osteoarthritis, left knee (principal); Z96.651 Presence of right artificial knee joint; Z98.890 Other specified postprocedural states
CPT/HCPCS: 97161; 64999; 64448; 76942; 88300; 73560; 27447; G0378 ×2; C1713 ×2; C1776; C1751; J2250; J0330; J1200; J1100; J2710; J0690 ×2; J2405; J3010; J1170 ×2; J2795 ×2; J2704; J2001

== ENCOUNTER → 2022-03-23 | Outpatient (CLI) | payer MEDICAID ==
[2022-03-23 18:45] LABS: Albumin 4.7 g/dL (3.8-4.9); Albumin/Globulin Ratio 1.88 (1.60-3.17); BUN/Creat Ratio 17.22 Ratio (12.00-20.00); Blood Urea Nitrogen 15.5 mg/dL (9.0-27.0); Calcium 9.6 mg/dL (8.7-10.3); Globulin 2.5 g/dL (1.6-3.3); Non-African American GFR(CKD) 90.6 (60.0-200.0); Potassium 4.4 mmol/L (3.5-5.5); Total Bilirubin 1.1 mg/dL (0.30-1.20); Total Protein 7.2 g/dL (6.2-8.2)
== END | disposition home or self-care (01) ==
LOC: LABWHC1 11:07
PROVIDERS: ATTEND Surgery
DX: K81.1 Chronic cholecystitis (principal)
CPT/HCPCS: 36415; 80053

== ENCOUNTER 2023-03-06 10:37 | Day surgery (SDC) | payer MEDICAID ==
[2023-02-28 11:28] VITALS: BMI 31.6
[~2023-03-06 10:37] MED LIST changes: -ACETAMINOPHEN TAB 500 MG TAB PO PRN; -DEXAMETHASONE SOD PHOSPHATE 4 MG/ML 1 ML VIAL IV ONE; +LACTATED RINGERS 1,000 ML IV SCH; -MELOXICAM 7.5 MG TAB PO PRN; -ONDANSETRON 4 MG/2 ML VIAL IVP ONE; -TRANEXAMIC ACID IN NACL,ISO-OS 1,000 MG in SALINE 1 100ML.BAG IVPB PRN
[2023-03-06 11:27] VITALS: TEMP 96.9
[2023-03-06] MEDS ORDERED: PROPOFOL 10 MG/ML 20 ML VIAL IV ONE (12:28)
--- NOTE | 2023-03-06 12:45 | P.PCN ---
Date of Procedure: 03/06/23 Procedure(s) Performed: BRIEF HISTORY: Patient is a 62-year-old pleasant white male scheduled for a colonoscopy as a part of evaluation of prior history of colon polyps. Last Colonoscopy was 5 years ago. PROCEDURE PERFORMED: Colonoscopy. PREOPERATIVE DIAGNOSIS: History of Of colon polyps. IV sedation per Anesthesia. PROCEDURE: After informed consent was obtained, the patient, was brought into the endoscopy unit. IV sedation was administered by Anesthesia under continuous monitoring. Digital rectal examination was normal. Initially the Olympus CF-160 flexible video colonoscope was then inserted in the rectum, gradually advanced into the cecum without any difficulty. Careful examination was performed as the scope was gradually being withdrawn. Ileocecal valve and the appendiceal orifice were visualized and appeared normal. Prep was fair.. Mucosa of the cecum, ascending colon, transverse colon, descending colon, sigmoid colon, and rectum appeared normal. Retroflexion was performed in the rectum and no lesions were seen. The patient tolerated the procedure well. IMPRESSION: Normal-appearing colon from rectum to cecum no evidence of colorectal neoplasia. RECOMMENDATIONS: Findings of this examination were discussed with the patient as well as his family. He was advised to have a repeat screening colonoscopy in 10 years..
[2023-03-06 13:25] VITALS: BP 121/79; PULSE 71; RESP 16
== END 2023-03-06 13:23 | disposition home or self-care (01) ==
LOC: ORWHC2ENDO 10:37
PROVIDERS: ATTEND Internal Medicine Gastroenterology
DX: Z12.11 Encounter for screening for malignant neoplasm of colon (principal); E80.4 Gilbert syndrome; M19.90 Unspecified osteoarthritis, unspecified site; Z79.899 Other long term (current) drug therapy; Z86.010 Personal history of colon polyps; Z96.653 Presence of artificial knee joint, bilateral; Z90.49 Acquired absence of other specified parts of digestive tract
CPT/HCPCS: 45378; J2704